=== PATIENT | female | born 1975 | race Hispanic/Latino ===

== ENCOUNTER → 2018-04-06 | Outpatient (CLI) | payer BC ==
[~2018-04-06] MED LIST: OMEPRAZOLE40 MG
--- NOTE | 2018-04-06 12:27 | Diagnostic Imaging Report ---
PROCEDURE: L-SPINE COMPLETE COMPARISON: 05/16/2014 INDICATIONS: LOWER BACK PAIN FOR 8 MONTHS RADIATES TO LEGS, DENIES INJURY. FINDINGS: 5 views of the lumbar spine (AP, lateral, L5-S1 view, and bilateral obliques) The lumbar spine is in anatomic alignment without evidence of fracture, spondylolisthesis, or spondylolysis. Vertebral body heights and disc spaces are maintained. Small anterior osteophytes at T11-T12. Mild facet arthrosis of the lower lumbar spine. Mild degenerative changes of the sacroiliac joints. The paraspinal soft tissues are normal. CONCLUSION: Mild degenerative changes. Otherwise unremarkable lumbar spine radiographs. Dictated by: Elias Garcia M.D. on 04/06/2018 at 12:34 Electronically approved by: Elias Garcia M.D. on 04/06/2018 at 12:34
--- NOTE | 2018-04-06 13:35 | Diagnostic Imaging Report ---
PROCEDURE:PELVIC ULTRASOUND COMPARISON:Pelvic ultrasound 08/28/2009. INDICATIONS:PELVIC PAIN TECHNIQUE: Grayscale transverse and sagittal transabdominal images were obtained of the pelvis. FINDINGS: UTERUS: Uterus measures 8.3. x 3.8 x 5.7 cm. Nabothian cyst is noted measuring up to 1.3 cm. Otherwise unremarkable in appearance. ENDOMETRIUM: Endometrial stripe measures 0.9 cm. RIGHT OVARY: A 1.6 cm right ovarian cyst, consistent with physiologic cyst in a pre-menopausal patient. Demonstrated Doppler flow. LEFT OVARY: Not visualized due to overlying bowel gas. There is no free fluid within the pelvis. No adnexal masses. CONCLUSION: No acute pelvic sonographic abnormality. Left ovary however is not visualized due to overlying bowel gas. Dictated by: PAM GARCIA M.D. on 04/06/2018 at 13:42 Electronically approved by: PAM GARCIA M.D. on 04/06/2018 at 13:42
== END ==
LOC: RAD 11:27
PROVIDERS: ATTEND Family Medicine
DX: M54.5 Low back pain (principal); R10.2 Pelvic and perineal pain
CPT/HCPCS: 72110; 76856